=== PATIENT | female | born 1990 | race Caucasian/White ===

== ENCOUNTER 2023-11-26 21:50 | Emergency (ER) | payer OTHER, SELFPAY ==
[2023-11-26 21:56] VITALS: BP 150/108
--- NOTE | 2023-11-27 00:52 | ED.GENMED ---
History of Present Illness
<KIMBER Noe - Last Filed: 11/27/23 01:24>
General
Chief Complaint: Skin Problem
Source: patient
Exam Limitations: none
Time Seen by Provider: 11/27/23 00:29
Nursing documentation reviewed up to this point in time: agreed with
Travel History
Have you had any contact with someone who has COVID-19?: No
Do you have any symptoms of coronavirus? Fever > 100 degrees, chills, cough, shortness of breath, sore throat, loss of taste or smell, muscle aches, or headache?: No
History of Present Illness
History of Present Illness:
33 y/o F presents to ED complaining of lip swelling x 5 months. Patient reports she got a kitten from a thrift store in July that was infested with worms, parasites and ringworm. Patient thinks she has had ringworm for 5 months but saw FM about 4
weeks ago. Patient states she was started on Griseofulvin pills and advised to take one pill daily until the bottle runs out. She states she is on her 7th bottle. She is not sure how many weeks she has been on the Griseofulvin for. Patient states
her lips have been swollen since she got the kitten. She reports that also reports crawling sensation under her skin throughout her body. She states there is one large worm that is crawling underneath her skin. Patient states the swelling also
begins to move around. Patient is also reporting chest tightness and chest pain. She believes the worm is going under her chest, causing the pain. Patient also has ulcers on her hands and feet that shes states have been there for a few weeks. She
has been picking at them. Patient has seen her family doctor, dentist and urgent care for her condition but was advised everything is normal. She saw her family doctor on who stated her symptoms were due to stress. Patient denies cough,
congestion, ear pain, sore throat, nausea, vomiting, diarrhea, chills, SOB or palpitations. She has no history of asthma. Patient does vape and smoke cigarettes for the past 15 years.
If applicable-neuro sx onset
Onset of symptoms known: No
Time pt last seen normal is known: No
Past History
<KIMBER Noe - Last Filed: 11/27/23 01:24>
Past History
ED Past Medical History: None
ED Past Surgical History: None
Social History
Tobacco: Smoker (smoker + vaping)
Alcohol: None
Drug: None
Personal: Single
Living: with family
Employment: Employed
Family History
Family History: Other (n/c)
Review of Systems
<KIMBER Noe - Last Filed: 11/27/23 01:24>
Review of Systems
Allergies reviewed?: Yes
All Other Systems: ROS reviewed and negative except as documented in HPI and ROS
Constitutional: Reports no symptoms
EENT: Reports no symptoms
Respiratory: Reports no symptoms
Cardiac: Reports chest pain
ABD/GI: Reports no symptoms
: Reports no symptoms
Musculoskeletal: Reports no symptoms
Skin: Reports other
Neurological: Reports no symptoms
Endocrine: Reports no symptoms
Hematologic/Lymphatic: Reports no symptoms
Psychiatric: Reports no symptoms
Phy Exam
<KIMBER Noe - Last Filed: 11/27/23 01:24>
General Physical Exam
General Presentation: mild distress
General age: appears stated age
General Skin: warm and dry
General Habitus: normal
General Mental: alert
General Hydration: appears well hydrated
ENT Exam
ENT Exam: EOMI, pharyngeal erythema and TM's abnormal (R TM canal erythematous )
Cardiovascular Exam
Cardiovascular Exam: regular rate/rhythm, no edema, no gallop, no murmur and normal peripheral pulses
Pulmonary Exam
Pulmonary Exam: lungs clear, no respiratory distress, no rales, no crackles and no rhonchi
Gastrointestinal Exam
Gastrointestinal Exam: normal bowel sounds, non tender, soft and non distended
Neurological Exam
Neurological Exam: alert and oriented x3
Musculoskeletal Exam
Musculoskeletal Exam: full ROM
Skin Exam
Skin Exam: normal color, warm/dry and other (ulcerations on hands and feet, resolving tinea on L arm and occipital )
Psychiatric Exam
Psychiatric Exam: normal mood/affect
Course
<KIMBER Noe - Last Filed: 11/27/23 01:24>
Orders/Labs/Results
Orders:
Orders
11/26/23 22:38
Electrocardiogram (*1) Urgent
Reason for Study: Palpitations
11/26/23 22:39
EKG- Treatment ONCE
11/27/23 01:18
Test Result ONCE
11/27/23 01:32
Complete Blood Count/With Diff Urgent
Comprehensive Metabolic Panel Urgent
HCG, Serum Qualitative Screen Urgent
Abnormal Lab Results
11/27/23
01:32
RBC 4.09 L 10^6/uL
(4.20-5.40)
Hct 35.5 L %
(37.0-47.0)
MCH 31.8 H pg
(27.0-31.0)
Lymphocytes % 20.1 L %
(20.5-51.1)
Sodium 134 L mmol/L
(135-145)
Glucose 106 H mg/dl
(70-99)
AST 77 H U/L
(14-36)
ALT 78 H U/L
(0-35)
11/27/23 01:32
11/27/23 01:32
Vital Signs
Initial and Last Documented VS:
Initial Vital Signs
Temp Pulse Resp BP Pulse Ox
100.5 F H 129 20 150/108 99
11/26/23 21:56 11/26/23 21:56 11/26/23 21:56 11/26/23 21:56 11/26/23 21:56
Last Documented Vital Signs
Temp Pulse Resp BP Pulse Ox
100.5 F H 129 20 150/108 99
11/26/23 21:56 11/26/23 21:56 11/26/23 21:56 11/26/23 21:56 11/26/23 21:56
<Brenda Adkins, DO - Last Filed: 11/27/23 02:22>
Orders/Labs/Results
Orders:
Orders
11/26/23 22:38
Electrocardiogram (*1) Urgent
Reason for Study: Palpitations
11/26/23 22:39
EKG- Treatment ONCE
11/27/23 01:18
Test Result ONCE
11/27/23 01:32
Complete Blood Count/With Diff Urgent
Comprehensive Metabolic Panel Urgent
HCG, Serum Qualitative Screen Urgent
Abnormal Lab Results
11/27/23
01:32
RBC 4.09 L 10^6/uL
(4.20-5.40)
Hct 35.5 L %
(37.0-47.0)
MCH 31.8 H pg
(27.0-31.0)
Lymphocytes % 20.1 L %
(20.5-51.1)
Sodium 134 L mmol/L
(135-145)
Glucose 106 H mg/dl
(70-99)
AST 77 H U/L
(14-36)
ALT 78 H U/L
(0-35)
11/27/23 01:32
11/27/23 01:32
Vital Signs
Initial and Last Documented VS:
Initial Vital Signs
Temp Pulse Resp BP Pulse Ox
100.5 F H 129 20 150/108 99
11/26/23 21:56 11/26/23 21:56 11/26/23 21:56 11/26/23 21:56 11/26/23 21:56
Last Documented Vital Signs
Temp Pulse Resp BP Pulse Ox
100.5 F H 129 20 150/108 99
11/26/23 21:56 11/26/23 21:56 11/26/23 21:56 11/26/23 21:56 11/26/23 21:56
<KIMBER Noe - Last Filed: 11/27/23 01:24>
MDM/Problems Addressed
Differential Diagnosis Includes:
Resolving ringworm
Anxiety
Delusional Parasitosis
<Brenda Adkins DO - Last Filed: 11/27/23 02:22>
*Pulse Oximetry
Patient hypoxic: no
*Critical Care Note
Total Time (30-74mins, 75-104mins- exclusive of procedures): Not Applicable
ED Attending Note
<KIMBER Noe - Last Filed: 11/27/23 01:24>
-
Portions of this chart may have been created with voice recognition software.� Occasional wrong word or��sound alike� substitutions may have occurred due to the inherent limitations of voice recognition software.
<Brenda Adkins DO - Last Filed: 11/27/23 02:22>
ED Attending Note
Patient seen and examined by attending physician: Yes
I performed the substantive portion of visit, reviewed & personally made and approve the management plan that is documented in note by myself or DIXIE.: Yes
I performed a history and physical exam of patient and discussed management with resident, I reviewed resident's note and agree with documented findings and plan of care.: Yes
ED Attending Note:
This is a 33-year-old woman with history of anxiety, prior history of substance abuse chronically maintained on Suboxone as well as Adderall.
She reports aj ringworm on her left forearm, posterior scalp region that initially began July 2023 shortly after adopting a kitten. Her son has similar ringworm skin infection. She has had multiple visits with urgent care as well as
primary care physician and she states 1 month ago, urgent care started her on oral griseofulvin for tinea capitis. She does admit that ringworm on her left forearm and posterior scalp are improving, near resolved but she complains of intermittent
sense of swelling of her face and lips and believes she has parasites crawling under her skin and believes she has witnessed parasites crawling under her skin of her arms and face. There has been no definitive documentation of any parasitosis
during multiple visits with urgent care as well as PCP.
Her last visit with her primary care physician was 4 days ago and she states her primary care physician was concerned for anxiety as cause for her symptoms.
She does admit to moderate generalized stress, anxiety but adamantly denies suicidal thoughts or plan. She denies drug abuse.
She denies itch nor fever. She denies sore throat nor nasal congestion, no cough nor shortness of breath, no chest pain or abdominal pain, no nausea nor vomiting, no diarrhea nor constipation. Appetite has been good. She denies change in weight.
She arrives to the ED accompanied by her father who is also concerned for ongoing anxiety issues as cause for her symptoms.
GENERAL: 33-year-old woman appears her stated age, awake and alert, very minimally anxious but easily communicative. Normal thought processes. She is well-groomed. Overall appears comfortable. Initial triage temperature reported 100.5. Afebrile
upon recheck at 98.2 �F. Patient denies recent fever, denies subjective fever.
EYE: anicteric
NECK: Supple, nontender, no meningismus, no significant adenopathy.
ENT: posterior pharynx is clear, oral mucosa is moist. TM clear b/l, nares patent. There is no angioedema. No facial rash.
CARDIAC: Regular rate and rhythm. no murmur.
LUNGS: Clear breath sounds bilaterally, no acute respiratory distress, no wheezes/rales/rhonchi
ABDOMEN: Soft, nondistended, without focal tenderness, normoactive BS.
NEUROLOGICAL: Alert and oriented x3, no focal neuro deficits. Gait is cano and steady.
SKIN: Warm and dry, normal color, skin intact. There are 2 small subacute superficial ulcerations left dorsal hand and left dorsal wrist. No drainage nor erythema nor soft tissue swelling. There is very minimal patch of hair thinning posterior
inferior scalp with minimal skin flake but no erythema, no crusting.
MUSCULOSKELETAL: No C/C/E. peripheral pulses are full and equal b/l. No palpable tenderness.
PSYCH: Very mildly anxious, easily communicative.
Patient appears to have resolving/near resolved tinea capitis posterior scalp. No evidence of tinea corporis nor other infectious skin condition nor dermatitis.
She is nearing completion of a course of oral griseofulvin which appears to be effective in eradicating tinea capitis and tinea corporis.
Exam is otherwise benign there is no evidence of skin infestation/parasitosis. Nothing to suggest scabies and patient denies significant itch.
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 Other concern is potential drug use which she adamantly denies.
Would recommend checking labs as griseofulvin can cause blood dyscrasias, elevated liver enzymes but there is nothing in history nor exam to suggest acute infectious process.
Father as well as patient are eager to be discharged to home.
She is hoping to be discharged prior to lab results and plans to follow-up with her primary care physician, [facility].
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
11/27/2023 0221 AM
Labs show unremarkable CBC. Normal eosinophils thus parasitosis is highly unlikely.
Very mildly elevated LFTs may be related to griseofulvin and patient has plans to follow-up with her primary care physician for recheck, LFTs can be rechecked after griseofulvin completed.
Discharge Plan
Departure
Patient Disposition: Home (Routine Discharge)
Date of Disposition: 11/27/23
Time of Disposition: 01:21
Patient with high blood pressure during this ER visit?: No
Condition: Good
Discharge Problem:
resolving tinea capitis, Delusions of parasitosis
Instructions: Anxiety, Adult (DC), Tinea Capitis (DC)
Prescriptions:
No Action
prenat.vits,arianna,[id number] [ Vitamin] 1 EACH tablet
1 tab PO DAILY
acetaminophen 325 MG tablet
650 mg PO Q4HPRN PRN (Reason: mild pain) 0RF
ibuprofen 600 MG tablet
600 mg PO Q4HPRN PRN (Reason: moderate pain/cramps) 0RF
Referrals:
Avila Sutton MD [Family Provider] - Call in 1-3 days for appt
Activity Restrictions/Additional Instructions:
Finish the griseofulvin.
Follow-up with your family doctor for recheck.
Recommend initiation of counseling for stress/anxiety.
Interventions
Interventions:
*Risk Screen - Suicide Last Done: 11/26/23 21:56
*General Assessment Last Done: 11/26/23 21:56
*Neglect/Abuse Screening Last Done: 11/27/23 00:00
ED- Fall Risk Assessment Last Done: 11/27/23 00:00
*ED COVID-19 Vaccine History Last Done: 11/27/23 00:00
*Nursing Disposition Last Done: 11/27/23 01:56
ED-Skin Assessment Last Done: 11/27/23 00:00
Discharge Date and Time
Discharge Date/Time: 11/27/23 01:56
[2023-11-27 01:38] LABS: % Basophils 0.4 % (0-2); % Eosinophils 0.7 % (0-6); % Immature Granulocytes 0.3 % (0-0.5); % Lymphocytes 20.1 % (20.5-51.1); % Monocytes 8.1 % (1.7-9.3); % Neutrophils 70.4 % (42.2-75.2); Absolute Eosinophils 0.1 10^3/uL (0-0.7); Absolute Lymphocytes 1.5 10^3/uL (1.2-3.4); Absolute Monocytes 0.6 10^3/uL (0.1-0.6); Absolute Neutrophils 5.4 10^3/uL (1.4-6.5); Hematocrit 35.5 % (37.0-47.0); Mean Corp Hgb Conc. 36.6 g/dL (33.0-37.0); Mean Corpuscular Hgb 31.8 pg (27.0-31.0); Mean Corpuscular Volume 86.8 fL (81.0-99.0); Mean Platelet Volume 10.1 fL (7.4-10.4); Nucleated Red Blood Cells % 0 %; Platelet Count 174 10^3/uL (130-400); Red Blood Cell Count 4.09 10^6/uL (4.20-5.40); Red Cell Dist. Width 11.9 % (11.5-14.5); White Blood Cell Count 7.6 10^3/uL (4.8-10.8)
[2023-11-27 01:49] LABS: HCG, Serum Qualitative Screen Negative
[2023-11-27 01:51] LABS: ALT (SGPT) 78 U/L (0-35); AST (SGOT) 77 U/L (14-36); Albumin 4.1 g/dl (3.5-5.0); Alkaline Phosphatase 83 U/L (38-126); Blood Urea Nitrogen 14 mg/dl (7-17); Carbon Dioxide 26 mmol/L (22-30); Chloride 103 mmol/L (98-107); Glucose 106 mg/dl (70-99); Potassium 3.5 mmol/L (3.5-5.1); Sodium 134 mmol/L (135-145); Total Bilirubin 0.4 mg/dl (0.2-1.3); Total Protein 6.8 g/dl (6.3-8.2); eGFR > 60.00
== END 2023-11-27 01:56 | disposition home or self-care (01) ==
LOC: EMR 21:50
PROVIDERS: EMERGENCY PHYSICIAN Emergency Medicine; FAMILY PHYSICIAN Family Medicine
DX: B35.0 Tinea barbae and tinea capitis (principal); F22 Delusional disorders; F17.210 Nicotine dependence, cigarettes, uncomplicated
CPT/HCPCS: 99283; 80053; 84703; 85025